=== PATIENT | male | born 1975 | race Caucasian/White ===

== ENCOUNTER 2019-07-07 18:37 | Emergency (ER) | payer MEDICAID ==
[~2019-07-07] VITALS: Ht 165.1 cm; Wt 75.0 kg
[2019-07-07] MEDS ORDERED: SODIUM CHLORIDE 0.9% 1,000 ML IV ONE (19:30)
[2019-07-07 19:35] LABS: BASOPHILS % 0.9 % (0.0-2.0); EOSINOPHILS % 1.1 % (0.0-5.0); HEMATOCRIT. 42.1 % (42.0-52.0); HEMOGLOBIN. 14.5 g/dL (14.0-18.0); LYMPHOCYTES % 31.2 % (20.0-50.0); MEAN CORPUSCULAR HEMOGLOBIN 30.2 pg (28.0-32.0); MEAN CORPUSCULAR VOLUME 87.7 fL (80.0-94.0); MONOCYTES % 9.3 % (2.0-8.0); NEUTROPHILS % 57.5 % (40.0-76.0); PLATELET 239 x1000/uL (130-400)
[2019-07-07 19:38] LABS: CHLORIDE 103 mEq/L (98-107)
[2019-07-07] MEDS ORDERED: HYDROCODONE/ACETAMINOPHEN 5/325MG TABLET PO ONE (20:00)
[2019-07-07] MEDS ORDERED: KETOROLAC 30MG/ML VIAL IV ONE (20:00)
[2019-07-07] MEDS ORDERED: INSULIN LISPRO 100 UNITS/ML SUBCUT ONE (21:45)
[2019-07-07 23:04] VITALS: BP 116/75
== END 2019-07-07 23:06 | disposition home or self-care (01) ==
LOC: ER 18:37
DX: E11.65 Type 2 diabetes mellitus with hyperglycemia (principal); M75.32 Calcific tendinitis of left shoulder; I49.9 Cardiac arrhythmia, unspecified; Z79.4 Long term (current) use of insulin
CPT/HCPCS: 36415; 73030; 80048; 82962; 85025; 93005; 96361; 96372; 96374; 99284; J1815; J1885; J7030